=== PATIENT | male | born 1985 | race Caucasian/White ===

== ENCOUNTER 2019-08-01 19:58 | Observation (INO) ==
[2019-08-01 16:38] LABS: BASO# 0.05 X1000 (0.0-0.2); BASO% 0.5 % (0.0-0.8); EOS% 0.9 % (0.0-10.0); HEMATOCRIT 48.1 % (42.0-52.0); HEMOGLOBIN 16.3 g/dL (14.0-18.0); IMM GRAN# 0.08 X1000 (0.0-0.04); IMM GRAN% 0.7 % (0.0-0.5); LYMPH% 20.3 % (20.5-51.1); MCH 26.9 PG (27-31); MCHC 33.9 g/dL (33-37); MCV 79.5 FL (81-99); MONO# 0.73 X1000 (0.11-0.59); MONO% 6.7 % (1.7-9.3); MPV 9.7 FL (7.4-10.4); NEUT% 70.9 % (42.2-75.2); PLT 400 X1000 (130-400); RBC 6.05 XMIL (4.7-6.1); RDW 14.3 % (11.5-14.5); WBC 10.86 X1000 (4.8-10.8)
[2019-08-01 16:57] LABS: AGAP 14; ALBUMIN 5.5 g/dL (3.5-5.0); ALKALINE PHOSPHATASE 81 U/L (32-122); BUN 11 mg/dL (8-22); CALCIUM 10.4 mg/dL (8.8-10.2); CHLORIDE 100 mmol/L (98-107); COSMO 278; ESTIMATED GFR > 60; GLUCOSE 114 mg/dL (70-104); GOT 44 U/L (10-34); GPT 66 U/L (10-44); POTASSIUM 3.3 mmol/L (3.5-5.1); SODIUM 139 mmol/L (136-145); TCO2 25 mmol/L (25-35); TOTAL PROTEIN 8.2 g/dL (6.3-8.3)
[2019-08-01 17:11] LABS: BE -2.5 mmoll (-3.0-3.0); BLOOD TYPE ARTERIAL; HCO3-(ACT) 22.8 mmoll (20.0-26.0); METHB 0.6 % (0.0-1.5); O2(CT) 21.3 mL/dL (15.0-23.0); O2HB 92.6 % (95.0-99.0); PCO2(98.6) 31 mmHg (35-45); PO2(98.6) 110 mmHg (60-100); SAMPLE BLOOD; THB 16.3 g/dL (11.5-17.4); pH(98.6) 7.43 (7.35-7.45)
[2019-08-01 17:14] LABS: ALLEN TEST YES; MODALITY CANNULA
[2019-08-01 17:37] LABS: INFLUENZA A NEGATIVE (NEGATIVE); INFLUENZA B NEGATIVE (NEGATIVE)
--- NOTE | 2019-08-01 18:45 | Diag Imaging Result Doc PS360 ---
EXAM: CT NECK W/CONTRAST HISTORY: sob TECHNIQUE: CT neck with intravenous contrast COMPARISON: None. FINDINGS: No sinus opacification. No air-fluid levels. The parotids are symmetric. There is edema and enlargement of the soft palate and thickening of the retropharyngeal soft tissues. The submandibular glands are swollen. There is narrowing of the airway. No well-defined fluid collection. No abscess. IMPRESSION: Prominent soft tissue swelling as described above concerning for angioedema. This report was discussed with Dr. Del Cid in the emergency room on 08/01/2019 at 6:45 PM and was readback. This exam was performed using automated exposure control, adjustment of mA or kV according to patient size, and/or use of iterative reconstruction technique. Electronically signed by Coy Casillas 08/01/2019 6:43 PM
--- NOTE | 2019-08-01 19:38 | Diag Imaging Result Doc PS360 ---
EXAM: CHEST-PORTABLE HISTORY: sob TECHNIQUE: Single view COMPARISON: None. FINDINGS: The lungs are well expanded. The heart is not enlarged. The vessels are not distended. There are no infiltrates. No effusion identified. IMPRESSION: Negative exam. Electronically signed by Coy Casillas 08/01/2019 7:35 PM
[2019-08-01] MEDS ORDERED: DECADRON IV ONE (21:05)
[2019-08-01] MEDS ORDERED: PEPCID IV ONE (21:05)
[2019-08-01] MEDS ORDERED: BENADRYL IV ONE (21:05)
--- NOTE | 2019-08-01 21:05 | PROVIDER DOCUMENTATION ---
HPI-General Adult - General Chief Complaint: General Adult Stated Complaint: PROCEDURE Time Seen by Provider: 08/01/19 20:44 Source: patient Allergies/Adverse Reactions: Patient Allergies Allergy/AdvReac Type Severity Reaction Status Date / Time Penicillins AdvReac SWELLING Verified 08/01/19 16:00 Home Medications: Home Medication List Medication Instructions Recorded Confirmed Last Taken Type Cetirizine [Zyrtec] 10 mg PO DAILY 08/01/19 08/01/19 Unknown History Hydroxyzine [Atarax] 50 - 100 mg PO 4XDAY PRN PRN 08/01/19 08/01/19 Unknown History L.acidoph,Paracasei, B.lactis 1 cap PO DAILY 08/01/19 08/01/19 Unknown History [Probiotic] Losartan/Hydrochlorothiazide 1 ea PO DAILY 08/01/19 08/01/19 Unknown History [Hyzaar 100-25 Tablet] Mv-Mn/Folic Acid/Lutein/[id number] 1 tab PO DAILY 08/01/19 08/01/19 Unknown History [Mens Multivit High Potency Tab] Omeprazole 40 mg PO DAILY 08/01/19 08/01/19 Unknown History Paroxetine HCl 20 mg PO DAILY 08/01/19 08/01/19 Unknown History Rizatriptan Benzoate [Rizatriptan] 10 mg PO DIRECTED 08/01/19 08/01/19 Unknown History Sucralfate [Carafate] 2 gm PO BID 08/01/19 08/01/19 Unknown History - History of Present Illness -Gen Adult Nature of Presenting Problems: Pt presents with angio edema, pt has pmh of same since his youth, pt was tr ansferred from [place], sent here for ENT consult, pt was scoped by Dr. Urbina, pt denies f/c, brooke, cp, sob, cough, ap, n/v/d. pt is lying in bed in no acute distress. Location of Pain/Injury: reports: none Pain Radiation: reports: no radiation Quality of Pain: reports: none Severity: reports: severe Onset/Duration: reports: 24 hours ago Timing: reports: still present Context/Activities at Onset: reports: none Modifying Factors: improves with: nothing Associated Symptoms: reports: denies symptoms Similar Symptoms Previously?: Yes Recently seen or treated by another doctor?: No Review of Systems - Adult - REVIEW OF SYSTEMS - ADULT Constitutional: reports: no symptoms reported Eyes: reports: no symptoms reported Ears, Nose, Mouth & Throat: reports: see HPI Cardiovascular: reports: no symptoms reported Respiratory: reports: no symptoms reported Gastrointestinal: reports: no symptoms reported Genitourinary: reports: no symptoms reported Musculoskeletal: reports: no symptoms reported Integumentary: reports: no symptoms reported Neurological: reports: no symptoms reported Psychiatric: reports: no symptoms reported Endocrine: reports: no symptoms reported Hematologic/Lymphatic: reports: no symptoms reported Allergic/Immunologic: reports: no symptoms reported All Other Systems: Reviewed and Negative Past History - Adult - PAST MEDICAL HISTORY-ADULT Review of Records: reports: Old Records Reviewed, Nursing Assessment Review, Medications Reviewed, Social history reviewed & non-contributory. Major Childhood Illnesses: reports: denies history Cardiovascular: reports: denies history Respiratory: reports: denies history Gastrointestinal: reports: denies history Obstetrical/Gynecological: reports: denies history Genitourinary: reports: denies history Musculoskeletal: reports: denies history Neurological: reports: denies history Psychiatric: reports: denies history Endocrine/Immune: reports: denies history Other Conditions: reports: denies history Physical Exam-General - PHYSICAL EXAM-ADULT Initial Vital Signs Reviewed: Yes - CONSTITUTIONAL General Appearance: appears well - EYES Eyes: PERRL/EOMI - HEAD, EARS, NOSE, MOUTH & THROAT HENMT: angioedema - NECK Neck: normal inspection - RESPIRATORY Respiratory: lungs clear, no respiratory distress, no accessory muscle use - CARDIOVASCULAR Cardiovascular: regular rate, rhythm - GASTROINTESTINAL (ABDOMEN) Abdominal Exam: normal bowel sounds, non tender, soft - LYMPHATIC Lymphatic: no adenopathy - MUSCULOSKELETAL Back Exam: normal inspection Extremity: normal range of motion - SKIN Integumentary: normal color - NEUROLOGIC Neurologic: grossly normal - PSYCHIATRIC Psych/Mental Status: normal mood/affect Progress - PLAN OF CARE/RESULTS Progress/Plan/Lab Results: Vital Signs - 8 hr 08/01/19 20:08 Temperature 98.9 F Pulse Rate 116 H Respiratory Rate 21 Blood Pressure 124/94 O2 Sat by Pulse Oximetry 94 L Pt was scoped by Dr Urbina of ENT (cell: [phone]), airway clear for now. Pt to be admitted for overnight observation Departure - Departure Date of Disposition Decision: 08/01/19 Time of Disposition Decision: 21:05 DIAGNOSIS: Angio-edema Qualifiers: Encounter type: initial encounter Qualified Code(s): T78.3XXA - Angioneurotic edema, initial encounter Disposition: ADMITTED INPATIENT 09 Certified Medical Emergency: Emergent Condition: Stable Referrals and Follow-Ups: Lui Hooker MD [Primary Care Provider] - - Critical Care Note This patient required my direct & personal management of CC.: No Attestation - Physician/ NANO Attestation Patient care was provided by Advanced Practice Provider:: No The physician spent face to face time with patient:: Yes Advanced Practice Provider documentation review:: Supervising physician onsite and consulted in the evaluation and care of this patient. The physician did have a face to face encounter with the patient.
--- NOTE | 2019-08-01 22:04 | CONSULTATION ---
DATE OF CONSULTATION: 08/01/2019 CHIEF COMPLAINT: Throat. HISTORY OF PRESENT ILLNESS: This very pleasant 34-year-old gentleman presents in transfer from [facility] to the emergency department here at [facility]. He has a longstanding history of swelling and edema of various parts of his body that he remembers happening from about 3 years old. He has never had any airway involvement. He has had issues with some heart swelling, elbow and shoulder swelling, significant facial swelling. He has not had any formal workup or evaluation that I am aware of or that he is aware of. He has never seen a stain sprayer or an talent analyst/broommaking supervisor for this problem. He has had septoplasty surgery, and he has seen at ENT for that, but he has never seen an ENT otherwise. He had some sore throat this morning, and the sore throat worsened throughout the day. He presented to [facility] earlier in the evening when he had a significant amount of shortness of breath and difficulty breathing and feeling like his upper airway was closing. On evaluation in their facility, he was noted to have upper airway patency on oral examination, but they were concerned about a deeper problem. He underwent a CT scan which showed edematous changes of the upper airways, and I was consulted in that regard. I recommended, due to the potential severity of his problem, that he be transferred by ambulance directly to the emergency department here at [facility] for further evaluation and management. He was given albuterol, Pepcid, Benadryl and Solu-Medrol prior to arrival. He was also given some Ativan, as he was having a fair amount of anxiety with the problem as well. PAST MEDICAL HISTORY: Anxiety, gastritis, edematous changes throughout the body of undetermined etiology. PAST SURGICAL HISTORY: Septoplasty as noted above. SOCIAL HISTORY: Significant for being a smoker, and he also vapes. He smokes approximately a half to 1 pack of cigarettes per day. FAMILY HISTORY: Noncontributory. ALLERGIES: Penicillin. MEDICATIONS: Paxil, omeprazole, Carafate. REVIEW OF SYSTEMS: As noted in the HPI above, otherwise negative. PHYSICAL EXAMINATION: GENERAL: He is an alert, pleasant, somewhat anxious but relatively well-appearing 34-year-old gentleman. He is accompanied by his , who is an RN, and he is in no apparent distress. HEENT: His external canals are free of cerumen. His tympanic membranes are intact. His middle ears are aerated. Nasal exam shows midline nasal septum with widely patent nasal airway bilaterally. Oral exam shows normal teeth, lips and gums. Healthy and moist mucosa. He does have edematous changes of his tonsils and also moderate edema of the uvula. He does not have any drooling or stridor. He does have a normal voice. NECK: Without any mass or adenopathy. He has full neck range of motion. PROCEDURE: With these changes and concerns in mind, based on his CT scan, and also the edematous changes of his uvula, I recommended a nasopharyngoscopy of the upper airway, the nasopharynx, the hypopharynx, and the larynx. The nose was anesthetized with lidocaine gel. A flexible scope was then passed through both sides of the nose. The left side was a bit easier to pass. He had, as noted, some mild edema of the uvula. He had moderate edema of the epiglottis and more pronounced edema of the arytenoids. The vocal folds were able to be visualized, and he looked to have full vocal fold motion. He did have blunting of the piriforms on both sides. ASSESSMENT: Angioedema of undetermined etiology. PLAN: I think that this pleasant gentleman should be admitted to the hospital for careful observation. I would recommend H1 and H2 blockers as well as steroids. Because he has not had any workup, I would recommend that at least a C1 esterase level be drawn, and he should be with the head of the head elevated. Certainly if he were to resolve these symptoms, I would like him to go home on a steroid taper pack, and I would recommend that he be evaluated by a stain sprayer or an nail professional to help sort out the etiology of this problem. Certainly I am concerned that this could become an ongoing issue that could become potentially life threatening, and I did tell the patient that. Also, I discussed with him smoking cessation and vaping cessation, as certainly those are contributing negatively to his overall situation. I think if things go well overnight, he should be fine to discharge tomorrow on a steroid taper, and again, close followup with an nail professional or a stain sprayer to help sort out the etiology of this problem better. If I can be of more assistance, I have left my number with the hospitalist service, and I would recommend they call me for further assessment.
[2019-08-01] MEDS ORDERED: SOLU-MEDROL IV SCH (23:00)
[2019-08-01] MEDS ORDERED: TYLENOL PO PRN (23:00)
[2019-08-01] MEDS ORDERED: SODIUM CHLORIDE 0.9% INJ SCH (23:00)
[2019-08-01] MEDS ORDERED: PEPCID IV SCH (23:00)
--- NOTE | 2019-08-02 02:46 | HISTORY AND PHYSICAL ---
PRIMARY CARE PHYSICIAN: Dr. Lui Hooker. CHIEF COMPLAINT: Neck swelling. HISTORY OF PRESENTING ILLNESS: A 34-year-old male with a history of depression, migraines, hypertension and angioedema, who had initially presented to [facility] with complaint of throat swelling and neck swelling. He was transferred to [facility] for evaluation by ENT. Apparently, ENT evaluated patient and has stated to place patient for observation for further evaluation. At the time of my examination, patient denied any headache, fever, chills, chest pain, shortness of breath or any weight changes, but stated that his throat and neck felt like it was swollen. PAST MEDICAL HISTORY: Includes depression, migraine, hypertension, angioedema. PAST SURGICAL HISTORY: Septal surgery. ALLERGIES: Penicillin. CURRENT MEDICATIONS: He does not recall. Nursing staff will reconcile. SOCIAL HISTORY: 15 pack years history of smoking. Denies any history of alcohol or illicit drug use. FAMILY HISTORY: No history of coronary artery disease. REVIEW OF SYSTEMS: Fourteen point review of systems as listed in HPI. Other systems negative. PHYSICAL EXAMINATION: GENERAL: Cooperative, friendly male. He is resting comfortably now. VITAL SIGNS: Temperature 98.9 degrees, pulse 116, respirations 21 blood pressure 124/94. HEENT: Atraumatic, normocephalic. Extraocular movements intact. PERRLA. NECK: There is some mild edema. CHEST: Clear to auscultation. CARDIOVASCULAR: Regular rate and rhythm. ABDOMEN: Soft. Positive bowel sounds. EXTREMITIES: No edema. NEUROLOGIC: He is awake, alert, oriented x3. GENITOURINARY: No bladder distention. SKIN: Warm. LABORATORIES AND STUDIES: Still pending. ASSESSMENT: A 34-year-old male with a history of depression, migraine, hypertension and angioedema, who had presented to the emergency department with complaint of neck/throat swelling. He was initially seen at [facility] and then transferred to [facility] for ENT to evaluate and as per ENT recommendations we will place the patient for observation further evaluation and management. 1. Angioedema, possibly hereditary. 2. Hypertension. 3. Depression. PLAN: 1. We will admit patient to medical floor with telemetry. 2. Continue with supportive treatment with IV Benadryl, IV Solu-Medrol, IV Pepcid. 3. ENT is following. 4. We will monitor blood pressure closely. Resume antihypertensive agent. 5. We will restart other home medications. 6. We will continue to follow, and reassess and make further recommendation based on patient's clinical course. cc: Sonny Hooker MD
[2019-08-02] MEDS ORDERED: BENADRYL IV SCH (05:00)
[2019-08-02] MEDS ORDERED: ATIVAN IV ONE (05:53)
[2019-08-02] MEDS ORDERED: SOLU-MEDROL IV SCH (11:00)
[2019-08-02 11:22] LABS: BASO# 0.01 X1000 (0.0-0.2); BASO% 0.1 % (0.0-0.8); HEMATOCRIT 41.5 % (42.0-52.0); IMM GRAN# 0.08 X1000 (0.0-0.04); IMM GRAN% 0.5 % (0.0-0.5); LYMPH# 1.19 X1000 (1.2-3.4); MCHC 33.7 g/dL (33-37); MCV 80.1 FL (81-99); MONO# 0.35 X1000 (0.11-0.59); MONO% 2.1 % (1.7-9.3); MPV 9.8 FL (7.4-10.4); NEUT% 90.3 % (42.2-75.2); PLT 390 X1000 (130-400); RBC 5.18 XMIL (4.7-6.1); RDW 14.1 % (11.5-14.5); WBC 16.93 X1000 (4.8-10.8)
[2019-08-02 11:24] VITALS: BP 133/68
[2019-08-02 11:43] LABS: ANISOCYTOSIS 1+; LYMPHS 6 % (21-51); MICROCYTOSIS 1+; MONO 2 % (1-9); SEGS 92 % (42-75)
[2019-08-02 11:44] LABS: HOWELL-JOLLY BODIES OCCASIONAL; LARGE PLATELETS OCCASIONAL
[2019-08-02 12:06] LABS: AGAP 17; ALB/GLOB RATIO 1.9; ALBUMIN 4.5 g/dL (3.5-5.0); ALKALINE PHOSPHATASE 61 U/L (32-122); BUN 18 mg/dL (8-22); CALCIUM 9.9 mg/dL (8.8-10.2); CHLORIDE 101 mmol/L (98-107); COSMO 282; ESTIMATED GFR > 60; GLUCOSE 142 mg/dL (70-104); GOT 20 U/L (10-34); GPT 44 U/L (10-44); POTASSIUM 3.8 mmol/L (3.5-5.1); SODIUM 139 mmol/L (136-145); TCO2 21 mmol/L (25-35); TOTAL BILIRUBIN 0.38 mg/dL (0.20-1.00); TOTAL PROTEIN 6.9 g/dL (6.3-8.3)
--- NOTE | 2019-08-02 13:16 | DISCHARGE SUMMARY ---
ADMISSION DATE: 08/01/2019 DISCHARGE DATE: 08/02/2019 DISCHARGE DIAGNOSES: 1. Angioedema. 2. Hypertension. 3. Depression. 4. Gastritis. CONSULTATIONS: None. PROCEDURES: None. HOSPITAL COURSE: This is a 34-year-old male who was transferred from [facility] to the ER here. He has history of swelling and edema various parts of his body that he remembers happening since he was a child, had an episode of swelling in the neck so he was admitted for angioedema. Patient has been admitted to the hospital for the reason to watch it overnight. He is feeling much better according to him and the who is at bedside. The patient requests to be discharged today. said that she knows when this patient is not feeling good so he is going to be discharged in stable condition with Medrol Dosepak. DISCHARGE PHYSICAL EXAMINATION: Vital Signs: Temperature 98.0 degrees, heart rate 103, respiratory rate 18, blood pressure 133/68, O2 saturation 100% on room air. General: This is a 34-year-old male, lying in bed, in no acute distress. Cardiovascular Exam: S1, S2 heard. No murmurs, gallops, or rubs. Regular rate and rhythm. Respiratory Exam: Clear bilaterally to auscultation. No work of breathing or use of accessory muscles. Abdomen: Soft, nontender to palpation. Bowel sounds present. No organomegaly. Extremities: No clubbing, cyanosis, or edema. Peripheral pulses present in both legs. Neurological: The patient is alert and oriented x3. Moves all 4 extremities. DISCHARGE DISPOSITION: 1. Home to self-care. 2. List of medications, Medrol Dosepak as directed. 3. Followup, he has an appointment with his primary care doctor and his documentation writer as scheduled. cc: Robin Azul MD MTDD
== END 2019-08-02 13:04 | disposition home or self-care (01) ==
LOC: ED 19:58 → 4N 22:03 → SUATTDRO 22:03 → INTOOBSV 22:03
PROVIDERS: ATTEND Internal Medicine